=== PATIENT | female | born 1965 | race Caucasian/White ===

== ENCOUNTER 2018-06-18 16:39 | Emergency (ER) | payer MEDICAID ==
[~2018-06-18] VITALS: Ht 167.6 cm; Wt 144.2 kg
[2018-06-18 16:44] VITALS: BP 164/102
[2018-06-18] MEDS ORDERED: methylPREDNISolone SOD SUCC 125 MG/2 ML VL IM ONE (17:45)
[2018-06-18] MEDS ORDERED: ALBUTEROL SULF 2.5 MG/0.5ML(0.5%) NEB SOLN NEB ONE (17:45)
[2018-06-18] MEDS ORDERED: IPRATROPIUM BROM 0.5 MG/2.5ML INH SOL NEB ONE (17:45)
== END 2018-06-18 18:25 | disposition home or self-care (01) ==
LOC: ER 16:44
DX: J40 Bronchitis, not specified as acute or chronic (principal); J45.909 Unspecified asthma, uncomplicated
CPT/HCPCS: 71046; 94640; 99284; J2930